=== PATIENT | male | born 1975 | race Caucasian/White ===

== ENCOUNTER → 2020-08-01 09:30 | Outpatient (BNVA) | payer MEDICARE, OTHER, SELFPAY | PROVIDERS: PCP Family Medicine; Referring Provider Physician Assistant; Visit Provider Anesthesiology Pain Medicine | DX: M54.81 Occipital neuralgia (principal); G62.9 Polyneuropathy, unspecified; M54.2 Cervicalgia; M54.9 Dorsalgia, unspecified; F17.290 Nicotine dependence, other tobacco product, uncomplicated; Z98.1 Arthrodesis status; Z98.890 Other specified postprocedural states | CPT/HCPCS: 64405; 99205; J1030; J3490 ==

== ENCOUNTER → 2020-08-15 10:08 | Outpatient (BNVA) | payer MEDICARE, OTHER, SELFPAY | PROVIDERS: PCP Family Medicine; Visit Provider Anesthesiology Pain Medicine | DX: G89.29 Other chronic pain (principal); M54.2 Cervicalgia; M54.16 Radiculopathy, lumbar region; M54.18 Radiculopathy, sacral and sacrococcygeal region; M51.36 Other intervertebral disc degeneration, lumbar region; M54.9 Dorsalgia, unspecified; M53.3 Sacrococcygeal disorders, not elsewhere classified; G62.9 Polyneuropathy, unspecified; Z98.890 Other specified postprocedural states; Z98.1 Arthrodesis status | CPT/HCPCS: 99213 ==

== ENCOUNTER → 2020-09-28 11:55 | Outpatient (BNVA) | payer MEDICARE, OTHER, SELFPAY | PROVIDERS: PCP Family Medicine; Visit Provider Anesthesiology Pain Medicine | DX: M54.9 Dorsalgia, unspecified (principal); M51.36 Other intervertebral disc degeneration, lumbar region; M53.3 Sacrococcygeal disorders, not elsewhere classified; M54.2 Cervicalgia; G62.9 Polyneuropathy, unspecified; Z98.1 Arthrodesis status; Z98.890 Other specified postprocedural states; F17.210 Nicotine dependence, cigarettes, uncomplicated | CPT/HCPCS: 99214 ==

== ENCOUNTER → 2020-10-09 14:04 | Outpatient (BNVA) | payer MEDICARE, OTHER, SELFPAY | PROVIDERS: PCP Family Medicine; Visit Provider Anesthesiology Pain Medicine | DX: G89.29 Other chronic pain (principal); M51.36 Other intervertebral disc degeneration, lumbar region; M54.9 Dorsalgia, unspecified; F17.290 Nicotine dependence, other tobacco product, uncomplicated | CPT/HCPCS: 62323; J1040; J3490 ==

== ENCOUNTER → 2020-10-25 10:07 | Outpatient (BNVA) | payer MEDICARE, SELFPAY | PROVIDERS: PCP Family Medicine; Visit Provider Anesthesiology Pain Medicine | DX: M51.36 Other intervertebral disc degeneration, lumbar region (principal); M53.3 Sacrococcygeal disorders, not elsewhere classified; M54.9 Dorsalgia, unspecified; G62.9 Polyneuropathy, unspecified; M54.2 Cervicalgia; F17.210 Nicotine dependence, cigarettes, uncomplicated; Z98.1 Arthrodesis status; Z98.890 Other specified postprocedural states | CPT/HCPCS: 99214 ==

== ENCOUNTER → 2020-11-02 14:03 | Outpatient (BNVA) | payer MEDICARE, OTHER, SELFPAY | PROVIDERS: PCP Family Medicine; Visit Provider Anesthesiology Pain Medicine | DX: M47.816 Spondylosis without myelopathy or radiculopathy, lumbar region (principal); M54.9 Dorsalgia, unspecified; F17.210 Nicotine dependence, cigarettes, uncomplicated | CPT/HCPCS: 64493; 64494; 64495; J1040; J3490 ==

== ENCOUNTER → 2020-11-16 09:47 | Outpatient (BNVA) | payer MEDICARE, OTHER, SELFPAY | PROVIDERS: PCP Family Medicine; Visit Provider Anesthesiology Pain Medicine | DX: M51.36 Other intervertebral disc degeneration, lumbar region (principal); M53.3 Sacrococcygeal disorders, not elsewhere classified; M54.9 Dorsalgia, unspecified; G62.9 Polyneuropathy, unspecified; M54.2 Cervicalgia; F17.210 Nicotine dependence, cigarettes, uncomplicated; Z98.1 Arthrodesis status; Z98.890 Other specified postprocedural states | CPT/HCPCS: 99214 ==

== ENCOUNTER → 2020-12-07 12:37 | Outpatient (BNVA) | payer MEDICARE, OTHER, SELFPAY | PROVIDERS: PCP Family Medicine; Visit Provider Anesthesiology Pain Medicine | DX: M47.816 Spondylosis without myelopathy or radiculopathy, lumbar region (principal); M54.9 Dorsalgia, unspecified | CPT/HCPCS: 64493; 64494; 64495; J1030; J3490 ==

== ENCOUNTER → 2020-12-20 14:01 | Outpatient (BNVA) | payer MEDICARE, OTHER, SELFPAY | PROVIDERS: PCP Family Medicine; Visit Provider Anesthesiology Pain Medicine | DX: G62.9 Polyneuropathy, unspecified (principal); M54.9 Dorsalgia, unspecified; M54.2 Cervicalgia; M51.36 Other intervertebral disc degeneration, lumbar region; M53.3 Sacrococcygeal disorders, not elsewhere classified; F17.210 Nicotine dependence, cigarettes, uncomplicated; Z98.1 Arthrodesis status; Z98.890 Other specified postprocedural states | CPT/HCPCS: 99214 ==

== ENCOUNTER → 2021-01-28 13:17 | Outpatient (BNVA) | payer MEDICARE, OTHER, SELFPAY | PROVIDERS: PCP Family Medicine; Visit Provider Anesthesiology Pain Medicine | DX: M47.816 Spondylosis without myelopathy or radiculopathy, lumbar region (principal); M54.9 Dorsalgia, unspecified; F17.210 Nicotine dependence, cigarettes, uncomplicated | CPT/HCPCS: 64635; 64636; J1030 ==

== ENCOUNTER → 2021-02-15 13:20 | Outpatient (BNVA) | payer MEDICARE, OTHER, SELFPAY | PROVIDERS: PCP Family Medicine; Visit Provider Anesthesiology Pain Medicine | DX: M47.816 Spondylosis without myelopathy or radiculopathy, lumbar region (principal); M54.9 Dorsalgia, unspecified | CPT/HCPCS: 64635; 64636; J1030 ==

== ENCOUNTER → 2021-03-19 09:12 | Outpatient (BNVA) | payer MEDICARE, OTHER, SELFPAY | PROVIDERS: PCP Family Medicine; Visit Provider Anesthesiology Pain Medicine | DX: M51.36 Other intervertebral disc degeneration, lumbar region (principal); M53.3 Sacrococcygeal disorders, not elsewhere classified; M54.9 Dorsalgia, unspecified; M54.2 Cervicalgia; Z98.1 Arthrodesis status; Z98.890 Other specified postprocedural states; Z87.891 Personal history of nicotine dependence | CPT/HCPCS: 99214 ==

== ENCOUNTER → 2021-06-19 09:17 | Outpatient (BNVA) | payer MEDICARE, OTHER, SELFPAY | PROVIDERS: PCP Family Medicine; Visit Provider Anesthesiology Pain Medicine | DX: G89.29 Other chronic pain (principal); M51.36 Other intervertebral disc degeneration, lumbar region; M53.3 Sacrococcygeal disorders, not elsewhere classified; M54.2 Cervicalgia; M79.601 Pain in right arm; M79.602 Pain in left arm; Z98.1 Arthrodesis status; Z98.890 Other specified postprocedural states | CPT/HCPCS: 99214 ==

== ENCOUNTER → 2021-07-24 12:57 | Outpatient (BNVA) | payer MEDICARE, OTHER, SELFPAY | PROVIDERS: PCP Family Medicine; Visit Provider Anesthesiology Pain Medicine | DX: G89.29 Other chronic pain (principal); M54.16 Radiculopathy, lumbar region; M51.36 Other intervertebral disc degeneration, lumbar region; M54.2 Cervicalgia; M53.3 Sacrococcygeal disorders, not elsewhere classified; G62.9 Polyneuropathy, unspecified; M79.601 Pain in right arm; M79.602 Pain in left arm; Z98.1 Arthrodesis status; Z98.890 Other specified postprocedural states | CPT/HCPCS: 99214 ==

== ENCOUNTER 2021-08-12 13:28 | Outpatient (CLI) | payer MEDICARE, OTHER, SELFPAY ==
--- NOTE | 2021-08-12 14:00 | CT_ITS ---
WS: [id number] CT LUMBAR SPINE TECHNIQUE: Noncontrast CT of the lumbar spine with coronal and sagittal reformatted images. CLINICAL INFORMATION: M54.16 - Radiculopathy, lumbar region COMPARISON: Outside CT July 04, 2020 DLP: [address] scans at [facility] use at least one of these dose optimization techniques: automated e xposure control; mA and/or kV adjustment per patient size (includes targeted exams where dose is matc hed to clinical indication); or iterative reconstruction. FINDINGS: Mild lumbar curve. No acute compression. Hypertrophic changes upper lumbar spine. Dorsal spinal epidu ral catheter extending cranially off the [id number]. L1-L2: Normal. L2-L3: Mild annular bulging. Spinal canal and foramen are patent. Mild facet arthropathy. L3-L4: Mild annular bulging with slight effacement of ventral thecal sac. Moderate facet arthropathy. Spinal canal and foramen are patent. L4-L5: Mild annular bulging with a shallow central protrusion. Mild central canal stenosis. Crowding of the traversing L5 nerve roots. Mild bilateral proximal foraminal narrowing. Moderate facet arthrop athy ligament flavum hypertrophy. L5-S1: Shallow central protrusion. Slight effacement of ventral thecal sac. Mild right foraminal narr owing. Left foramen is patent. Moderate facet arthropathy. Prior postoperative changes sacroiliac fixation. Overall no significant changes since 2019 CT/CT lumbar spine wo con* [id number] IMPRESSION: 1. Mild lumbar curve. No acute compression. 2. Mild central canal stenosis L4-5 due to mild annular bulging with a shallow central protrusion and slight crowding of the traversing L5 nerve roots. 3. Mild bilateral proximal L4-5 foraminal narrowing 4. Tiny shallow central protrusion L5-S1 with mild right L5-S1 foraminal narro wing. Recommend correlation for right L5 nerve root symptoms. 5. Moderate facet arthropathy L4-L5 and L5-S1.
== END 2021-08-12 13:29 | disposition home or self-care (01) ==
PROVIDERS: PCP Family Medicine; Visit Provider Anesthesiology Pain Medicine
DX: M54.16 Radiculopathy, lumbar region (principal); M48.061 Spinal stenosis, lumbar region without neurogenic claudication; M51.27 Other intervertebral disc displacement, lumbosacral region; M47.816 Spondylosis without myelopathy or radiculopathy, lumbar region; M47.817 Spondylosis without myelopathy or radiculopathy, lumbosacral region
CPT/HCPCS: 72131

== ENCOUNTER → 2021-08-19 12:58 | Outpatient (BNVA) | payer MEDICARE, OTHER, SELFPAY | PROVIDERS: PCP Family Medicine; Visit Provider Anesthesiology Pain Medicine | DX: M51.16 Intervertebral disc disorders with radiculopathy, lumbar region (principal) | CPT/HCPCS: 62323; 64483; 64484; J1100; J3490 ==

== ENCOUNTER → 2021-09-02 09:15 | Outpatient (BNVA) | payer MEDICARE, OTHER, SELFPAY | PROVIDERS: PCP Family Medicine; Visit Provider Anesthesiology Pain Medicine | DX: M79.18 Myalgia, other site (principal); G62.9 Polyneuropathy, unspecified; M54.2 Cervicalgia; M51.36 Other intervertebral disc degeneration, lumbar region; M53.3 Sacrococcygeal disorders, not elsewhere classified; Z98.1 Arthrodesis status; Z98.890 Other specified postprocedural states | CPT/HCPCS: 20553; 99214; J1030; J3490 ==

== ENCOUNTER → 2021-10-21 08:38 | Outpatient (BNVA) | payer MEDICARE, OTHER, SELFPAY | PROVIDERS: PCP Family Medicine; Visit Provider Anesthesiology Pain Medicine | DX: M79.18 Myalgia, other site (principal); G62.9 Polyneuropathy, unspecified; M54.2 Cervicalgia; M51.36 Other intervertebral disc degeneration, lumbar region; M53.3 Sacrococcygeal disorders, not elsewhere classified; M79.601 Pain in right arm; M79.602 Pain in left arm; Z98.890 Other specified postprocedural states; Z98.1 Arthrodesis status | CPT/HCPCS: 20553; 99214; J1030; J3490 ==

== ENCOUNTER → 2021-12-02 10:12 | Outpatient (BNVA) | payer MEDICARE, OTHER, SELFPAY | PROVIDERS: PCP Family Medicine; Visit Provider Anesthesiology Pain Medicine | DX: M79.18 Myalgia, other site (principal); G62.9 Polyneuropathy, unspecified; M54.2 Cervicalgia; M51.36 Other intervertebral disc degeneration, lumbar region; M53.3 Sacrococcygeal disorders, not elsewhere classified; M79.601 Pain in right arm; M79.602 Pain in left arm; Z98.1 Arthrodesis status; Z98.890 Other specified postprocedural states | CPT/HCPCS: 20553; 99214; J1030; J3490 ==

== ENCOUNTER → 2022-03-03 09:40 | Outpatient (BNVA) | payer MEDICARE, OTHER, SELFPAY | PROVIDERS: PCP Family Medicine; Visit Provider Anesthesiology Pain Medicine | DX: M79.18 Myalgia, other site (principal); M54.2 Cervicalgia; M51.36 Other intervertebral disc degeneration, lumbar region; M53.3 Sacrococcygeal disorders, not elsewhere classified; M79.604 Pain in right leg; M79.601 Pain in right arm; M79.602 Pain in left arm; Z98.1 Arthrodesis status; Z98.890 Other specified postprocedural states | CPT/HCPCS: 20553; 99214; J1030; J3490 ==

== ENCOUNTER → 2022-03-13 14:14 | Outpatient (BNVA) | payer MEDICARE, OTHER, SELFPAY | PROVIDERS: PCP Family Medicine; Visit Provider Anesthesiology Pain Medicine | DX: M47.816 Spondylosis without myelopathy or radiculopathy, lumbar region (principal) | CPT/HCPCS: 64635; 64636; J1030 ==

== ENCOUNTER → 2022-03-27 14:12 | Outpatient (BNVA) | payer MEDICARE, OTHER, SELFPAY | PROVIDERS: PCP Family Medicine; Visit Provider Anesthesiology Pain Medicine | DX: M47.816 Spondylosis without myelopathy or radiculopathy, lumbar region (principal) | CPT/HCPCS: 64635; 64636; J1030 ==

== ENCOUNTER → 2022-04-10 11:15 | Outpatient (BNVA) | payer MEDICARE, OTHER, SELFPAY | PROVIDERS: PCP Family Medicine; Visit Provider Anesthesiology Pain Medicine | DX: M54.2 Cervicalgia (principal); M79.601 Pain in right arm; M79.602 Pain in left arm; M51.36 Other intervertebral disc degeneration, lumbar region; M53.3 Sacrococcygeal disorders, not elsewhere classified; M79.604 Pain in right leg; Z98.1 Arthrodesis status; Z98.890 Other specified postprocedural states | CPT/HCPCS: 99214 ==

== ENCOUNTER → 2022-05-05 09:25 | Outpatient (BNVA) | payer MEDICARE, OTHER, SELFPAY | PROVIDERS: PCP Family Medicine; Visit Provider Anesthesiology Pain Medicine | DX: M51.36 Other intervertebral disc degeneration, lumbar region (principal); G62.9 Polyneuropathy, unspecified; M54.2 Cervicalgia; M53.3 Sacrococcygeal disorders, not elsewhere classified; M79.601 Pain in right arm; M79.602 Pain in left arm; Z98.1 Arthrodesis status; Z98.890 Other specified postprocedural states | CPT/HCPCS: 99214 ==

== ENCOUNTER → 2022-05-21 14:22 | Outpatient (BNVA) | payer MEDICARE, OTHER, SELFPAY | PROVIDERS: PCP Family Medicine; Visit Provider Anesthesiology Pain Medicine | DX: M54.16 Radiculopathy, lumbar region (principal) | CPT/HCPCS: 64483; 64484; J1100; J3490 ==

== ENCOUNTER → 2022-06-10 11:06 | Outpatient (BNVA) | payer MEDICARE, OTHER, SELFPAY | PROVIDERS: PCP Family Medicine; Visit Provider Anesthesiology Pain Medicine | DX: M51.36 Other intervertebral disc degeneration, lumbar region (principal); M53.3 Sacrococcygeal disorders, not elsewhere classified; M54.2 Cervicalgia; G62.9 Polyneuropathy, unspecified; Z98.1 Arthrodesis status; Z98.890 Other specified postprocedural states | CPT/HCPCS: 99214 ==

== ENCOUNTER → 2022-09-03 10:40 | Outpatient (BNVA) | payer MEDICARE, OTHER, SELFPAY | PROVIDERS: PCP Family Medicine; Visit Provider Anesthesiology Pain Medicine | DX: M54.2 Cervicalgia (principal); M51.36 Other intervertebral disc degeneration, lumbar region; Z98.890 Other specified postprocedural states; Z98.1 Arthrodesis status | CPT/HCPCS: 20553; 99214; J1030; J3490 ==

== ENCOUNTER → 2022-10-02 13:22 | Outpatient (BNVA) | payer MEDICARE, OTHER, SELFPAY | PROVIDERS: PCP Family Medicine; Visit Provider Anesthesiology Pain Medicine | DX: M54.16 Radiculopathy, lumbar region (principal) | CPT/HCPCS: 64483; 64484; J1100; J3490 ==

== ENCOUNTER → 2022-12-08 09:24 | Outpatient (BNVA) | payer MEDICARE, OTHER, SELFPAY | PROVIDERS: PCP Family Medicine; Visit Provider Anesthesiology Pain Medicine | DX: M54.2 Cervicalgia (principal); M51.36 Other intervertebral disc degeneration, lumbar region; M53.3 Sacrococcygeal disorders, not elsewhere classified; M79.601 Pain in right arm; M79.602 Pain in left arm; Z98.890 Other specified postprocedural states; Z98.1 Arthrodesis status | CPT/HCPCS: 99214 ==

== ENCOUNTER → 2023-01-05 09:55 | Outpatient (BNVA) | payer MEDICARE, OTHER, SELFPAY | PROVIDERS: PCP Family Medicine; Visit Provider Anesthesiology Pain Medicine | DX: M51.36 Other intervertebral disc degeneration, lumbar region (principal); M53.3 Sacrococcygeal disorders, not elsewhere classified; M54.2 Cervicalgia; M79.601 Pain in right arm; M79.602 Pain in left arm; Z98.1 Arthrodesis status; Z98.890 Other specified postprocedural states | CPT/HCPCS: 99214 ==

== ENCOUNTER → 2023-01-20 13:08 | Outpatient (BNVA) | payer MEDICARE, OTHER, SELFPAY | PROVIDERS: PCP Family Medicine; Visit Provider Anesthesiology Pain Medicine | DX: M54.16 Radiculopathy, lumbar region (principal) | CPT/HCPCS: 64483; 64484; J1100; J3490 ==

== ENCOUNTER → 2023-02-03 12:35 | Outpatient (BNVA) | payer MEDICARE, OTHER, SELFPAY | PROVIDERS: PCP Family Medicine; Visit Provider Anesthesiology Pain Medicine | DX: M54.16 Radiculopathy, lumbar region (principal) | CPT/HCPCS: 64483; 64484; J1100; J3490 ==

== ENCOUNTER 2023-02-27 06:48 | Outpatient (CLI) | payer MEDICARE, OTHER, SELFPAY ==
--- NOTE | 2023-02-27 07:00 | CT_ITS ---
WS: [id number] CT LUMBAR SPINE TECHNIQUE: Noncontrast CT of the lumbar spine with coronal and sagittal reformatted images. CLINICAL INFORMATION: M54.16 - Radiculopathy, lumbar region COMPARISON: None. DLP: 1812.[address] scans at [facility] use at least one of these dose optimization techniques: automated e xposure control; mA and/or kV adjustment per patient size (includes targeted exams where dose is matc hed to clinical indication); or iterative reconstruction. FINDINGS: Mild lumbar curve. No acute compression. Anterior hypertrophic changes at L1-L2. No high-grade centra l canal stenosis. Dorsal spinal stimulator ascends off the [id number]. L1-L2: Normal L2-L3: Mild annular bulging. Mild facet arthropathy. Spinal canal and foramen are patent. Mild facet arthropathy. Slight narrowing of the LEFT subarticular recess. L3-L4: Mild annular bulging. Slight effacement of ventral thecal sac. Mild central canal stenosis. Mo derate facet arthropathy. Mild RIGHT greater than LEFT foraminal narrowing. L4-L5: Mild annular bulging. Slight effacement of ventral thecal sac. Mild central canal stenosis Mod erate facet arthropathy. Mild foraminal narrowing.. L5-S1: Tiny central LEFT pericentral protrusion. Slight indentation on the LEFT S1 nerve root. Forame n are patent. Moderate facet arthropathy. Adrenal glands are normal. Prior postoperative changes fusion across the SI joints. CT/CT lumbar spine wo con* [id number] IMPRESSION: 1. Shallow LEFT pericentral protrusion L5-S1 impinges LEFT S1 nerve root subar ticular recess. This is similar to previous. 2. Previously described central canal stenosis L4-L5 is stable with mild narro wing of the subarticular recess bilaterally. Mild bilateral L4-L5 foraminal jose francisco rowing. 3. Tiny LEFT pericentral protrusion L2-L3 with slight narrowing of the LEFT butt barticular recess. This appears stable. 4. Mild central canal stenosis L3-L4 with mild RIGHT greater than LEFT foramin al narrowing. This appears unchanged. Annular bulging at this level appears sli ghtly progressed. 5. No other significant changes compared to previous. 6. Mild to moderate facet arthropathy described above. 7. Spinal stimulator.
== END 2023-02-27 06:49 | disposition home or self-care (01) ==
LOC: RAD 06:54
PROVIDERS: PCP Family Medicine; Visit Provider Anesthesiology Pain Medicine
DX: M54.16 Radiculopathy, lumbar region (principal); M51.27 Other intervertebral disc displacement, lumbosacral region; M48.061 Spinal stenosis, lumbar region without neurogenic claudication; M51.26 Other intervertebral disc displacement, lumbar region
CPT/HCPCS: 72131

== ENCOUNTER → 2023-03-11 09:40 | Outpatient (BNVA) | payer MEDICARE, OTHER, SELFPAY | PROVIDERS: PCP Family Medicine; Visit Provider Anesthesiology Pain Medicine | DX: M51.36 Other intervertebral disc degeneration, lumbar region (principal); M53.3 Sacrococcygeal disorders, not elsewhere classified; M54.2 Cervicalgia; Z98.1 Arthrodesis status; Z98.890 Other specified postprocedural states | CPT/HCPCS: 99215 ==

== ENCOUNTER 2023-05-04 13:53 | Outpatient (CLI) | payer MEDICARE, OTHER, SELFPAY ==
--- NOTE | 2023-05-04 14:10 | CTR_ITS ---
PROCEDURE INFORMATION: Exam: CT Pelvis Without Contrast; Skeletal Exam date and time: 05/04/2023 2:29 PM Age: 48 years old Clinical indication: Pelvic pain; Prior surgery; Surgery date: 6+ months; Surgery type: Bilat si joints, spinal cord stimulator; Patient HX: Sacrolitis since nov, pain in bilat hips and down into legs since nov; Additional info: Sacroilitis TECHNIQUE: Imaging protocol: Computed tomography of the pelvis without contrast. Exam focused on the skeleton. Radiation optimization: All CT scans at this facility use at least one of these dose optimization techniques: automated exposure control; mA and/or kV adjustment per patient size (includes targeted exams where dose is matched to clinical indication); or iterative reconstruction. REPORTING DATA: Count of CT and Cardiac NM exams in prior 12 months: This patient has received [address] and 0 known cardiac nuclear medicine studies in the 12 months prior to the current study. COMPARISON: CT lumbar spine wo con* [id number] 02/27/2023 7:05 AM RADIATION DOSE METRICS: Total DLP (mGy-cm): 647.09 FINDINGS: Bones/joints: Intact bilateral sacroiliac arthrodesis hardware noted. No erosive or sclerotic changes seen at the sacroiliac joint spaces. No acute fracture. No dislocation. Soft tissues: Spinal stimulator device noted in the left gluteal region. CT/CT pelvis wo con [id number] IMPRESSION: No apparent CT findings of sacroiliitis.
== END 2023-05-04 13:54 | disposition home or self-care (01) ==
PROVIDERS: PCP Family Medicine; Visit Provider Pain Medicine Interventional Pain Medicine
DX: M46.1 Sacroiliitis, not elsewhere classified (principal); Z96.82 Presence of neurostimulator
CPT/HCPCS: 72192

== ENCOUNTER 2024-05-16 08:09 | Outpatient (CLI) | payer MEDICARE, OTHER, SELFPAY ==
--- NOTE | 2024-05-16 08:11 | IR_ITS ---
WS: [id number] CERVICAL MYELOGRAM HISTORY: NECK PAIN/CERVICAL RADICULOPATHY COMPARISON: Cervical spine CT 07/04/2020 reviewed. FLUOROSCOPY TIME: 2min [id number] # of spot films: 2 Procedure, risks and complications were explained to the patient. Risks including bleeding, infection , headaches, allergic reaction and seizures. Consent has been obtained. With the patient in prone position the skin over the lumbar region is cleansed with ChloraPrep and an esthetized with lidocaine. 22-gauge spinal needle is inserted into the thecal sac at the appropriate level determined by fluoroscopy. Omnipaque 240; 12 ml is injected slowly under fluoroscopy with no co mplications. Needle bevel is perpendicular to the longitudinal fibers of the dura. Stylet is reinsert ed prior to removal of the needle. Patient tolerated the procedure well. Patient will proceed to CT f or further evaluation. Using gravity the contrast is moved into the cervical spine. Mild RIGHT curvature cervical spine. Dis c spacer at C5-6. IR/IR myelogram sp cervical [id number] IMPRESSION: 1. Uncomplicated cervical spine myelogram. 2. Please see CT cervical myelogram report to follow.
--- NOTE | 2024-05-16 08:11 | CT_ITS ---
WS: [id number] CT CERVICAL MYELOGRAM HISTORY: NECK PAIN/CERVICAL RADICULOPATHY Technique: All CT scans at [facility] use at least one of these dose optimization techniques: automated exposure control; mA and/or kV adjustment per patient size (includes targeted exams where dose is matched to clinical indication); or iterative reconstruction. DLP: 488.47 mGy.cm COMPARISON: Cervical spine CT 07/04/2020 Good opacification of thecal sac with contrast. Moderate RIGHT curvature cervical spine. Interbody disc spacer at C5-6 similar to the prior examinati on with no subsidence or displacement. Osseous fusion at C3-4 disc and facet joints. 2 mm anterolisth esis of C4. No fractures. Craniocervical junction is normal. Lateral masses of C1 and C2 align. C2-C3: No stenosis. C3-C4: Mild LEFT foraminal narrowing due to facet disease and scoliosis. C4-C5: Mild annular disc bulging. No stenosis. C5-C6: Moderate osteophytic ridging around the vertebral bodies. The osteophytes encroach upon the ve ntral thecal sac with displacement and effacement of CSF. Moderate central and bilateral foraminal st enosis. C6-C7: Mild osteophytic ridging and mild RIGHT foraminal narrowing. Mild central stenosis. C7-T1: Mild central stenosis and foraminal narrowing due to osteophyte and facet disease. Paravertebral soft tissues are negative. Lung apices are clear. CT/CT cervical spine w con [id number] IMPRESSION: 1. Status post interbody disc spacer at C5-6 with no change since 07/04/2021. 2. Moderate osteophytic ridging at C5-6. Vertebral body osteophytes efface and displace the ventral CSF. Moderate central and bilateral foraminal stenosis. 3. Osseous fusion at C3-4 disc and facet joints. 4. Mild LEFT foraminal stenosis at C3-4. 5. Mild central and RIGHT foraminal narrowing at C6-7. 6. Mild central and bilateral foraminal narrowing at C7-T1. 7. Degenerative moderate RIGHT scoliosis cervical spine.
[2024-05-16] MEDS: iohexol 240 mg/mL 50 mL Btl 20 ML INTRATHECA (09:38)
== END 2024-05-16 08:10 | disposition home or self-care (01) ==
LOC: RAD 08:09
PROVIDERS: PCP Family Medicine; Visit Provider Neurological Surgery
DX: M47.892 Other spondylosis, cervical region (principal); M41.52 Other secondary scoliosis, cervical region; M50.321 Other cervical disc degeneration at C4-C5 level; M25.78 Osteophyte, vertebrae; M48.02 Spinal stenosis, cervical region; M48.03 Spinal stenosis, cervicothoracic region; Z96.698 Presence of other orthopedic joint implants; M43.22 Fusion of spine, cervical region
CPT/HCPCS: 62302; 72126; Q9966